=== PATIENT | female | born 2000 | race Caucasian/White ===

== ENCOUNTER 2023-05-09 06:57 | Inpatient (IN) | payer OTHER ==
[2023-05-09] MEDS ORDERED: hydrALAZINE 20 MG/ML VIAL SLOW IVP PRN ×3 (07:33→21:49)
[2023-05-09] MEDS ORDERED: Promethazine HCl 25 MG/ML VIAL IM PRN (09:22)
[2023-05-09] MEDS ORDERED: Ibuprofen 800 MG TAB PO PRN (09:22)
[2023-05-09] MEDS ORDERED: Ondansetron PF 4 MG/2 ML Vial IVP PRN (09:22)
[2023-05-09] MEDS ORDERED: Misoprostol 200 MCG TAB PR PRN (09:22)
[2023-05-09] MEDS ORDERED: Carboprost 250 MCG/ML AMP IM PRN (09:22)
[2023-05-09] MEDS ORDERED: Tranexamic Acid 1,000 MG/10 ML VIAL IVP PRN (09:22)
[2023-05-09] MEDS ORDERED: Methylergonovine 0.2 MG/ML VIAL IM PRN (09:22)
[2023-05-09] MEDS ORDERED: Lidocaine 1% (PF) 30 ML VIAL SC PRN (09:22)
[2023-05-09] MEDS ORDERED: Penicillin G Potassium 5 MILL.UNITS in Sodium Chloride 0.9% 100 ML IVPB SCH (09:30)
[2023-05-09] MEDS ORDERED: NS w/ Oxytocin 30 units 500 ML IV SCH ×2 (09:30)
[2023-05-09] MEDS ORDERED: Penicillin G Potassium 5 MILL.UNITS VIAL ONE (09:36)
[2023-05-09 10:23] LABS: Hematocrit 38.8 % (34.9-44.5); Hemoglobin 12.6 g/dL (12.0-15.5); Mean Corpuscular HGB CONC 32.5 g/dL (32.0-36.0); Mean Corpuscular Hemoglobin 26.9 pg (27.0-33.0); Mean Corpuscular Volume 82.7 fl (81.6-98.3); Mean Platelet Volume 11.8 fl (7.4-10.4); Platelet Count 214 10x3/uL (150-450); RBC Distribution Width 14.4 % (11.5-14.5); Red Blood Cell (RBC) Count 4.69 10x6/uL (3.90-5.03); White Blood Cell (WBC) Count 15.3 10x3/uL (3.5-10.5)
[2023-05-09 10:51] LABS: HBSAg Index 0.17 S/CO (0-0.99); Hep B Surf Ag - L&D Non-Reactive S/CO (NonReactive); Syphilis Antibody Nonreactive (Nonreactive); Syphilis Antibody Index 0.04 S/CO (<1.00 Non-Reactive)
[2023-05-09] MEDS: Penicillin G 2.5 MILL.units 2.5 MILL.UNITS in Premix Bag 1 BAG IVPB SCH ×2 (13:40→17:31)
[2023-05-09 16:02] VITALS: BMI 24.2
[2023-05-09] MEDS ORDERED: Morphine 4 MG/ML VIAL ONE (21:39)
[2023-05-09] MEDS ORDERED: Bisacodyl 10 MG SUPP PR PRN (21:49)
[2023-05-09] MEDS ORDERED: Boostrix 0.5 ML (Tdap) VIAL (>/=7 yrs of age) IM ONE (21:49)
[2023-05-09] MEDS ORDERED: Milk Of Magnesia 30 ML UDCUP PO PRN (21:49)
[2023-05-10] MEDS: Lactated Ringer's 1,000 ML IV SCH (00:29)
[2023-05-10] MEDS: Penicillin G 2.5 MILL.units 2.5 MILL.UNITS in Premix Bag 1 BAG IVPB SCH ×2 (00:29→00:30)
[2023-05-10] MEDS: Ibuprofen 800 MG TAB PO PRN ×3 (01:07→15:48)
[2023-05-10] MEDS: Docusate 100 MG CAP PO SCH ×2 (08:01→21:05)
[2023-05-10] MEDS: Ferrous Sulfate 325 MG TAB PO SCH ×2 (08:06→14:46)
[2023-05-10] MEDS ORDERED: Benzocaine-Menthol 82.5 ML CAN TOP PRN (13:33)
[2023-05-11] MEDS: Ibuprofen 800 MG TAB PO PRN ×2 (05:51→13:32)
[2023-05-11 07:57] VITALS: BP 115/64; TEMP 97.9
== END 2023-05-11 15:20 | disposition home or self-care (01) | DRG 807 ==
LOC: CSHLD/OP 06:57 → CSHLD 09:22 → CSHPED 23:57
PROVIDERS: ADMIT Family Medicine; ATTEND Family Medicine
PROC: 10E0XZZ Delivery of Products of Conception, External Approach (ICD-10-PCS; principal; 2023-05-09)
PROC: 0KQM0ZZ Repair Perineum Muscle, Open Approach (ICD-10-PCS; 2023-05-09)
PROC: 10907ZC Drainage of Amniotic Fluid, Therapeutic from Products of Conception, Via Natural or Artificial Opening (ICD-10-PCS; 2023-05-09)
DX: O99.344 Other mental disorders complicating childbirth (principal); Z37.0 Single live birth; Z3A.38 38 weeks gestation of pregnancy; F32.A Depression, unspecified; F41.9 Anxiety disorder, unspecified; O99.824 Streptococcus B carrier state complicating childbirth; Z79.899 Other long term (current) drug therapy; O70.1 Second degree perineal laceration during delivery
CPT/HCPCS: 85027; 86780; 86850; 86900; 86901; 87340; 99285; J2270; J2405; J2540; J2590